=== PATIENT | male | born 1995 | race Native Hawaiian/Other Pacific Islander ===

== ENCOUNTER 2016-08-21 12:22 | Emergency (ER) | payer OTHER ==
[2016-08-21 12:33] VITALS: BP 110/67; RESP 18; TEMP 97.7; O2SAT 95
--- NOTE | 2016-08-21 13:02 | ED PDOC ---
HPI: Chest Pain Time Seen by Provider: 08/21/16 12:34 Chief Complaint (Nursing): Chest Pain Chief Complaint (Provider): chest wall pain History Per: Patient History/Exam Limitations: no limitations Onset/Duration Of Symptoms: Hrs (prior to arrival ) Current Symptoms Are (Timing): Still Present Additional Complaint(s): Dipak Sahni is a 21 year old male, with no previous medical history, who presents to the ED with complaints of chest wall pain which began prior to arrival. Pt reports to working out in school and undergoing exercises which are more strenuous than usual after which the pain began. Pt reports pain is across the chest in a band like distribution. Pt states pain has since subsided but was forced to come to the ED for evaluation as per school request. Pt denies any shortness of breath. Pt denies any additional complaints at this time. PMD: none provided Past Medical History Reviewed: Historical Data, Nursing Documentation, Vital Signs Vital Signs: Last Vital Signs Temp 97.7 F 08/21/16 12:28 Pulse 90 08/21/16 13:00 Resp 18 08/21/16 12:28 BP 110/67 08/21/16 13:00 Pulse Ox 95 08/21/16 13:07 - Medical History PMH: No Chronic Diseases - Family History Family History: States: Unknown Family Hx - Immunization History Hx Tetanus Toxoid Vaccination: No Hx Influenza Vaccination: No Hx Pneumococcal Vaccination: No - Allergies Allergies/Adverse Reactions: Allergies Allergy/AdvReac Type Severity Reaction Status Date / Time No Known Allergies Allergy Verified 08/21/16 12:28 Review of Systems ROS Statement: Except As Marked, All Systems Reviewed And Found Negative Cardiovascular: Positive for: Other (chest wall pain ) Respiratory: Negative for: Shortness of Breath Physical Exam - Reviewed Nursing Documentation Reviewed: Yes Vital Signs Reviewed: Yes - Physical Exam Appears: Positive for: Well, Non-toxic, No Acute Distress Head Exam: Positive for: ATRAUMATIC, NORMAL INSPECTION, NORMOCEPHALIC Skin: Positive for: Normal Color, Warm, Dry Eye Exam: Positive for: Normal appearance ENT: Positive for: Normal ENT Inspection Neck: Positive for: Normal, Painless ROM Cardiovascular/Chest: Positive for: Regular Rate, Rhythm, Chest Non Tender Respiratory: Positive for: Normal Breath Sounds. Negative for: Decreased Breath Sounds, Respiratory Distress Extremity: Positive for: Normal ROM (in upper extremity ), Capillary Refill (< 2 seconds ), Other (activating pectorales muscles with no tenderness/pain; strength 5/5 ). Negative for: Tenderness, Deformity, Swelling Neurologic/Psych: Positive for: Alert, Oriented - ECG O2 Sat by Pulse Oximetry: 95 (RA) Pulse Ox Interpretation: Normal Medical Decision Making Medical Decision Making: Initial Impression: Chest pain Initial Plan: * CXR * EKG * reevaluation Pt denies any chest pain CXR normal Scribe Attestation: Documented by Jeannette Rodríguez, acting as a scribe for Shey Gallagher PA-C. Provider Scribe Attestation: All medical record entries made by the Scribe were at my direction and personally dictated by me. I have reviewed the chart and agree that the record accurately reflects my personal performance of the history, physical exam, medical decision making, and the department course for this patient. I have also personally directed, reviewed, and agree with the discharge instructions and disposition. Disposition - Clinical Impression Clinical Impression: Chest pain - Patient ED Disposition Is Patient to be Admitted: No Counseled Patient/Family Regarding: Diagnosis, Need For Followup - Disposition [facility]errals[facility] Disposition: Routine/Home Disposition Time: 14:39 Condition: GOOD Instructions: Chest Pain (ED)
[2016-08-21 13:16] VITALS: PULSE 90
--- NOTE | 2016-08-21 15:27 | RAD ---
HISTORY: Chest pressure COMPARISON: No prior. FINDINGS: LUNGS: The lungs are hyperinflated and there is peribronchial thickening with streaky opacities in both lungs. There is no lobar pneumonia. PLEURA: No significant pleural effusion identified, no pneumothorax apparent. CARDIOVASCULAR: Normal. OSSEOUS STRUCTURES: No significant abnormalities. VISUALIZED UPPER ABDOMEN: Normal. OTHER FINDINGS: None. IMPRESSION: Findings may represent reactive small airway disease/ viral/ atypical pneumonitis. No lobar pneumonia.
--- NOTE | 2016-08-21 19:13 | CARD ---
APPROVED REPORT EKG Measurement Heart [id number] <Conclusion> Normal sinus rhythm Possible Left atrial enlargement Borderline ECG
== END 2016-08-21 14:53 | disposition home or self-care (01) ==
LOC: H.ER 12:22
DX: R07.89 Other chest pain (principal)

== ENCOUNTER 2017-07-02 15:49 | Emergency (ER) | payer OTHER ==
[2017-07-02 16:25] VITALS: BP 143/87; PULSE 88; RESP 16; TEMP 98.5; O2SAT 98
--- NOTE | 2017-07-02 17:44 | ED PDOC ---
HPI: General Adult Time Seen by Provider: 07/02/17 16:25 Chief Complaint (Nursing): Back Pain Chief Complaint (Provider): Rectal pain History Per: Patient History/Exam Limitations: no limitations Onset/Duration Of Symptoms: Days Have you had recent travel within the past 21 days to any of the following countries: [place], [place], [place] or [place]?: No Current Symptoms Are (Timing): Still Present Additional Complaint(s): Patient presents to ER today with complaints of rectal pain for the past 2 days. Patient states after going to the bathroom today, he noted blood when he wiped. Patient states he is concerned about a perirectal abscess. He denies any vomiting, diarrhea. No other complaints. Past Medical History Reviewed: Historical Data, Nursing Documentation, Vital Signs Vital Signs: Last Vital Signs Temp 98.5 F 07/02/17 16:23 Pulse 88 07/02/17 16:23 Resp 16 07/02/17 16:23 BP 143/87 07/02/17 16:23 Pulse Ox 98 07/07/17 19:02 - Medical History PMH: No Chronic Diseases - Surgical History Surgical History: No Surg Hx - Family History Family History: States: Unknown Family Hx - Immunization History Hx Tetanus Toxoid Vaccination: No Hx Influenza Vaccination: No Hx Pneumococcal Vaccination: No - Home Medications Home Medications: Ambulatory Orders Medication Instructions Recorded Docusate [Colace] 100 mg PO Q12H PRN #10 cap 07/02/17 Hydrocortisone 2.5% (Rectal) 30 applic RI BID #1 tube 07/02/17 [Anusol-HC] - Allergies Allergies/Adverse Reactions: Allergies Allergy/AdvReac Type Severity Reaction Status Date / Time No Known Allergies Allergy Verified 08/21/16 12:28 Review of Systems ROS Statement: Except As Marked, All Systems Reviewed And Found Negative Gastrointestinal: Positive for: Rectal Pain. Negative for: Vomiting, Diarrhea Physical Exam - Reviewed Nursing Documentation Reviewed: Yes Vital Signs Reviewed: Yes - Physical Exam Appears: Positive for: Non-toxic, No Acute Distress Head Exam: Positive for: NORMAL INSPECTION Skin: Positive for: Normal Color Neck: Positive for: Supple Cardiovascular/Chest: Positive for: Regular Rate, Rhythm Respiratory: Positive for: Normal Breath Sounds. Negative for: Respiratory Distress Rectal: Positive for: Hemorrhoids (external hemorrhoid noted at 12 o'clock) Neurologic/Psych: Positive for: Alert, Oriented. Negative for: Motor/Sensory Deficits - ECG O2 Sat by Pulse Oximetry: 98 (RA) Pulse Ox Interpretation: Normal Medical Decision Making Medical Decision Making: Impression: Hemorrhoids Plan: -- Patient stable for discharge home, given precription for hemorrhoid cream and colace. Scribe Attestation: Documented by Mariah Hernandez acting as a scribe for MILES Russo Provider Attestation: All medical record entries made by the Scribe were at my direction and personally dictated by me. I have reviewed the chart and agree that the record accurately reflects my personal performance of the history, physical exam, medical decision making, and the department course for this patient. I have also personally directed, reviewed, and agree with the discharge instructions and disposition. Disposition - Clinical Impression Clinical Impression: External hemorrhoid - Disposition Disposition: Routine/Home Disposition Time: 17:40 Condition: STABLE Prescriptions: Docusate [Colace] 100 mg PO Q12H PRN #10 cap PRN Reason: Constipation Hydrocortisone 2.5% (Rectal) [Anusol-HC] 30 applic RI BID #1 tube Instructions: Hemorrhoids Forms: [facility] (Yi)
== END 2017-07-02 17:57 | disposition home or self-care (01) ==
LOC: H.ER 15:49
DX: K64.4 Residual hemorrhoidal skin tags (principal)

== ENCOUNTER 2018-04-05 13:31 | Emergency (ER) | payer OTHER ==
[2018-04-05 13:42] VITALS: RESP 16; O2SAT 97
[2018-04-05] MEDS ORDERED: Iohexol 240 (50 ml) PO ONE (14:37)
--- NOTE | 2018-04-05 14:43 | ED PDOC ---
HPI: Abdomen Time Seen by Provider: 04/05/18 14:31 Chief Complaint (Nursing): Abdominal Pain Chief Complaint (Provider): Abdominal Pain History Per: Patient History/Exam Limitations: no limitations Onset/Duration Of Symptoms: Gradual (x2-3 months) Current Symptoms Are (Timing): Still Present Additional Complaint(s): 22 year old male, [employer] student who presents to ED with gradual onset of left, lower abdominal discomfort for the last 2-[address] ates pain is worse while sleeping but has 4-5 hours of pain during the day, as well. He denies any fever, chills, headache, vomiting, diarrhea, melena, [id number], weight loss, change in appetite, dizziness, urinary complaints, injury, strain, trauma, alcohol or drug use. PCP: none provided Past Medical History Reviewed: Historical Data, Nursing Documentation, Vital Signs Vital Signs: Last Vital Signs Temp 98 F 04/05/18 13:38 Pulse 89 04/05/18 13:38 Resp 16 04/05/18 13:38 BP 121/68 04/05/18 13:38 Pulse Ox 97 04/05/18 13:38 - Medical History PMH: No Chronic Diseases - Surgical History Surgical History: No Surg Hx - Family History Family History: States: Unknown Family Hx - Social History Alcohol: None Drugs: Denies - Immunization History Hx Tetanus Toxoid Vaccination: No Hx Influenza Vaccination: No Hx Pneumococcal Vaccination: No - Home Medications Home Medications: Ambulatory Orders Medication Instructions Recorded Docusate [Colace] 100 mg PO Q12H PRN #10 cap 07/02/17 Hydrocortisone 2.5% (Rectal) 30 applic ID BID #1 tube 07/02/17 [Anusol-HC] Ibuprofen [Motrin Tab] 600 mg PO Q6 PRN #15 tab 04/05/18 - Allergies Allergies/Adverse Reactions: Allergies Allergy/AdvReac Type Severity Reaction Status Date / Time No Known Allergies Allergy Verified 04/05/18 13:38 Review of Systems ROS Statement: Except As Marked, All Systems Reviewed And Found Negative Constitutional: Negative for: Fever, Chills, Weight loss Gastrointestinal: Positive for: Abdominal Pain (lower left). Negative for: Vomiting, Diarrhea, Melena, Other (BRBPR or decreased appetite) Genitourinary Male: Negative for: Dysuria, Frequency, Incontinence, Hematuria Neurological: Negative for: Headache Physical Exam - Reviewed Nursing Documentation Reviewed: Yes Vital Signs Reviewed: Yes - Physical Exam Appears: Positive for: Non-toxic, No Acute Distress Head Exam: Positive for: ATRAUMATIC, NORMAL INSPECTION, NORMOCEPHALIC Skin: Positive for: Normal Color Eye Exam: Positive for: Normal appearance ENT: Positive for: Normal ENT Inspection Neck: Positive for: Normal Cardiovascular/Chest: Positive for: Regular Rate, Rhythm Respiratory: Positive for: Normal Breath Sounds. Negative for: Respiratory Distress Gastrointestinal/Abdominal: Positive for: Bowel Sounds (active on auscultation), Soft, Tenderness (LLQ discomfort mildly). Negative for: Mass, Guarding, Rebound Back: Positive for: Normal Inspection. Negative for: L CVA Tenderness, R CVA Tenderness Extremity: Positive for: Normal ROM (upper/lower) Neurologic/Psych: Positive for: Alert, Oriented. Negative for: Motor/Sensory Deficits - Laboratory Results Result Diagrams: 04/05/18 16:33 04/05/18 15:05 - ECG O2 Sat by Pulse Oximetry: 97 (RA) Pulse Ox Interpretation: Normal Medical Decision Making Medical Decision Making: Initial Impression: LLQ pain R/O space-occupying lesion/malignancy/colitis Initial Plan: * CT ABD/pelvis with IV and PO contrast * Labs * Omnipaque 240 50ml PO labs unremarkable ABd CT performed and report reviewed. Fat in colonic wall, refer to GI for opinion and eval given pain. Rx motrin, discharge in stable condition. Scribe Attestation: Documented by Pauline Krause, acting as a scribe for Stefano Luis III, DO. Provider Scribe Attestation: All medical record entries made by the Scribe were at my direction and personally dictated by me. I have reviewed the chart and agree that the record accurately reflects my personal performance of the history, physical exam, medical decision making, and the department course for this patient. I have also personally directed, reviewed, and agree with the discharge instructions and disposition. Disposition - Clinical Impression Clinical Impression: Abdominal pain - Patient ED Disposition Is Patient to be Admitted: No Counseled Patient/Family Regarding: Studies Performed, Diagnosis, Need For Followup, Rx Given - Disposition Referrals: Oral Solomon MD [Staff Provider] - Disposition: Routine/Home Disposition Time: 19:15 Condition: STABLE Additional Instructions: Followup with GI doctor for further testing and possible colonoscopy. Return to ER for any worse or new symptoms. Use motrin for pain as needed. Prescriptions: Ibuprofen [Motrin Tab] 600 mg PO Q6 PRN #15 tab PRN Reason: Pain, Moderate (4-7) Instructions: Acute Abdomen (Belly Pain), Adult (DC) Forms: [facility] (I[place]ic)
[2018-04-05] MEDS ORDERED: Iohexol 240 (50 ml) ONE (15:23)
[2018-04-05 15:36] LABS: ALB/GLOB RATIO 1.3 (1.0-2.1); ALBUMIN 4.9 g/dL (3.5-5.0); ALT/SGPT 38 U/L (21-72); AST/SGOT 32 U/L (17-59); BLOOD UREA NITROGEN 12 mg/dl (9-20); CALCIUM 9.6 mg/dL (8.4-10.2); GFR NON-AFRICAN AMERICAN > 60; LIPASE 77 U/L (23-300)
[2018-04-05 16:36] LABS: BASO % 0.8 % (0.0-2.0); EOS % 0.8 % (0.0-4.0); HEMOGLOBIN 14.4 g/dL (12.0-18.0); LYMPH # 1.9 K/uL (1.0-4.3); LYMPH % 33.6 % (20.0-40.0); MEAN CELL VOLUME 89.2 fl (80.0-94.0); MEAN CORPUSCULAR HEMOGLOBIN 30.1 pg (27.0-31.0); MEAN CORPUSCULAR HGB CONC 33.7 g/dL (33.0-37.0); MEAN PLATELET VOLUME 8.3 fl (7.2-11.7); MONO # 0.6 K/uL (0.0-0.8); MONO % 10.1 % (0.0-10.0); NEUT # 3.1 K/uL (1.8-7.0); NEUT % 54.7 % (50.0-75.0); NRBC % 0.1 % (0.0-0.0); RBC 4.78 Mil/uL (4.40-5.90); RED CELL DISTRIBUTION WIDTH 13.2 % (11.5-14.5); WHITE BLOOD COUNT 5.6 K/uL (4.8-10.8)
[2018-04-05] MEDS ORDERED: Iohexol 300 100 ML IJ ONE (16:43)
[2018-04-05] MEDS ORDERED: Sodium Chloride 0.9% 50 ML IV ONE (16:43)
--- NOTE | 2018-04-05 18:45 | CT ---
Date of service: 04/05/2018 PROCEDURE: CT Abdomen and Pelvis with contrast HISTORY: LLQ pain x2-3 months COMPARISON: None available. TECHNIQUE: CT scan of the abdomen and pelvis was performed after administration of intravenous contrast. Oral contrast was administered. Coronal and sagittal reformatted images were obtained. Contrast dose: 90 mL Omnipaque Radiation dose: Total exam DLP = 0.0 mGy-cm. This CT exam was performed using one or more of the following dose reduction techniques: Automated exposure control, adjustment of the mA and/or kV according to patient size, and/or use of iterative reconstruction technique. FINDINGS: LOWER THORAX: The visualized lungs are clear. LIVER: Normal in size with homogeneous enhancement. No gross lesion or ductal dilatation. GALLBLADDER AND BILE DUCTS: Contracted. No calcified gallstones, wall thickening or pericholecystic fluid. PANCREAS: Normal in size with homogeneous enhancement. No gross lesion or ductal dilatation. SPLEEN: Normal in size and appearance. ADRENALS: No discrete nodule. KIDNEYS AND URETERS: Normal in size with homogeneous enhancement. No hydronephrosis. No solid mass. VASCULATURE: No aortic aneurysm. BOWEL: The small bowel loops are normal in caliber. There is sending and transverse colon are normal in appearance. The left hemicolon is essentially decompressed. There is fat deposition in the left colonic wall. There are scattered left colonic diverticula without CT evidence for acute diverticulitis left. No bowel wall thickening or obstruction. APPENDIX: Normal appendix. PERITONEUM: No free fluid. No free air. LYMPH NODES: No enlarged lymph nodes. BLADDER: Well distended and normal in appearance. REPRODUCTIVE: The prostate gland is normal in size. BONES: No acute fracture. There is diffuse bone demineralization. OTHER FINDINGS: None. IMPRESSION: No acute abdominal or pelvic abnormality. Fat deposit szymanski in the left colonic wall may represent chronic colitis. Scattered left colonic diverticula without CT evidence for acute diverticulitis. Diffuse bone demineralization. Please correlate with vitamin-D and serum calcium levels.
[2018-04-10 15:27] VITALS: BP 124/78; PULSE 70; TEMP 98.4
== END 2018-04-05 19:30 | disposition home or self-care (01) ==
LOC: H.ER 13:31
DX: R10.9 Unspecified abdominal pain (principal)
CPT/HCPCS: 74177; 80053; 83690; 85025; 99282; Q9966; Q9967